=== PATIENT | male | born 1955 | race Caucasian/White ===

== ENCOUNTER 2018-03-13 22:17 | Observation (INO) ==
[2018-03-13] MEDS ORDERED: INSULIN REGULAR 100 UNIT/ML IV STA (22:57)
[2018-03-13] MEDS ORDERED: ALBUTEROL/IPRATROPIUM 3 ML NEB RESP TX STA (22:57)
[2018-03-13] MEDS ORDERED: SODIUM CHLORIDE 0.9% 500 ML IV STA (22:57)
[2018-03-14 00:01] LABS: Alanine Aminotransferase 218 U/L (16-61); Albumin 3.2 G/DL (3.4-5.0); Alkaline Phosphatase 139 U/L (45-117); Amylase 274 U/L (25-115); Aspartate Amino Transferase 195 U/L (0-37); Bilirubin,Total < 0.39 MG/DL (0.2-1.0); Blood Urea Nitrogen 19 MG/DL (7-18); Calcium 8.1 MG/DL (8.5-10.1); Glucose 362 MG/DL (74-106); Osmolality,Calculated 278.7 MOS/KG (273-304); Potassium 4.7 MMOL/L (3.5-5.1); Sodium 131 MMOL/L (136-145); Total Protein 7.9 G/DL (6.4-8.3); Troponin I < 0.015 NG/ML (0.00-0.045)
[2018-03-14] MEDS ORDERED: INSULIN REGULAR 100 UNIT/ML SUBCUT STA (00:23)
[2018-03-14 00:43] LABS: Apearance,Urine CLEAR (Clear); Bilirubin,Urine Negative (Negative); Blood, Urine Negative (Negative); Glucose,Urine (UA) >=500 mg/dL (Negative); Hyaline Casts,Urine 3 /LPF (0-3); Ketones,Urine Negative (Negative); Nitrite,Urine Negative (Negative); Protein,Urine Negative; RBC,Urine <1 /HPF (0-4); Squamous Epithelial Cell,Urine Occasional /HPF (0-10); Urine Color Yellow (Yellow); Urine Specific Gravity 1.023 (1.001-1.035); Urine Urobilinogen < 2.0 EU/DL (0.2-1.0); WBC,Urine <1 /HPF (0-6)
[2018-03-14 00:47] LABS: Barbiturates Screen,Urine Positive (Negative); Benzodiazepines Screen,Urine Positive (Negative); Cannabinoid Screen,Urine Positive (Negative); Opiate Screen,Urine Negative (Negative); Phencyclidine Screen,Urine Negative (Negative)
[2018-03-14 00:47] LABS: Basophils # 0.1 10*3/uL (0.0-0.2); Basophils % 0.7 % (0.0-0.8); Eosinophils # 0.2 10*3/uL (0.0-0.87); Eosinophils % 2.8 % (0.00-10.9); Hematocrit 37.5 VOL% (42.0-52.0); Hemoglobin 13.2 GM/DL (14.0-18.0); Immature Granulocytes % 0.6 %; Immature Granulocytes Absolute 0.04 #; Lymphocytes # 2.2 10*3/uL (1.4-4.0); Lymphocytes % 31.3 % (21.2-54.2); Mean Corpuscular HGB Conc 35.2 GM/DL (32-36); Mean Corpuscular Hemoglobin 32 PG (27-34); Mean Corpuscular Volume 90.6 FL (87-102); Mean Platelet Volume 9.9 FL (9.6-12.0); Monocytes # 0.7 10*3/uL (0.11-0.8); Monocytes % 9.6 % (1.7-12.7); Neutrophils # 3.9 10*3/uL (1.4-7.4); Platelet Count 121 T/CUMM (130-400); Red Blood Count 4.14 MC/CUMM (3.8-5.5); Red Cell Distribution Width 12.1 % (9.3-17.3); White Blood Count 7.1 T/CUMM (4-12)
[2018-03-14] MEDS ORDERED: DEXTROSE 50% 25 GM/50 ML VIAL IV PRN ×2 (01:00)
[2018-03-14] MEDS ORDERED: ONDANSETRON 4 MG/2 ML VIAL IV PRN (01:00)
[2018-03-14] MEDS ORDERED: GLUCAGON 1 MG VIAL IM PRN ×2 (01:00)
[2018-03-14] MEDS ORDERED: METHOCARBAMOL 750 MG TABLET PO PRN (01:05)
[2018-03-14] MEDS ORDERED: DICYCLOMINE 10 MG CAPSULE PO PRN (01:07)
[2018-03-14] MEDS ORDERED: hydrOXYzine HCL 25 MG TABLET PO PRN (01:08)
[2018-03-14 01:32] LABS: Alanine Aminotransferase 209 U/L (16-61); Alkaline Phosphatase 122 U/L (45-117); Aspartate Amino Transferase 175 U/L (0-37); Bilirubin,Total < 0.39 MG/DL (0.2-1.0); Blood Urea Nitrogen 19 MG/DL (7-18); Calcium 7.9 MG/DL (8.5-10.1); Glucose 345 MG/DL (74-106); Osmolality,Calculated 281.4 MOS/KG (273-304); Potassium 4.4 MMOL/L (3.5-5.1); Sodium 133 MMOL/L (136-145); Total Protein 7.6 G/DL (6.4-8.3)
[2018-03-14] MEDS: LORazepam 1 MG TABLET PO SCH ×5 (04:48→21:00)
[2018-03-14] MEDS: ENOXAPARIN 40 MG/0.4 ML SYRINGE SUBCUT SCH (10:09)
[2018-03-14] MEDS: INSULIN LISPRO 100 UNIT/ML SUBCUT SCH ×3 (10:09→18:07)
[2018-03-14] MEDS: INSULIN REGULAR 100 UNIT/ML SUBCUT SCH ×4 (10:10→21:01)
[2018-03-14] MEDS: MULTIVITAMIN (CENTRUM) TABLET PO SCH (10:10)
[2018-03-14] MEDS: THIAMINE 100 MG TABLET PO SCH (10:11)
[2018-03-14] MEDS: FOLIC ACID 1 MG TABLET PO SCH (10:11)
[2018-03-14] MEDS: PANTOPRAZOLE 40 MG TABLET PO SCH (10:11)
[2018-03-14 15:58] LABS: Hepatitis A Ab IgM Quant 0.08 Index; Hepatitis A Ab IgM Result Negative (Negative); Hepatitis B Core IgM Result Negative (Negative); Hepatitis B Surface Ag Quant 0.24 Index; Hepatitis B Surface Ag Result Negative (Negative); Hepatitis C Virus Ab Quant > 11.00 Index; Hepatitis C Virus Ab Result Positive (Negative)
[2018-03-14 20:02] LABS: Hepatitis B Core Ab Result Positive (Negative); Hepatitis B Surface Ab Result Negative
[2018-03-14] MEDS ORDERED: INSULIN GLARGINE 100 UNIT/ML SUBCUT SCH (21:00)
[2018-03-15] MEDS: LORazepam 1 MG TABLET PO SCH (00:50)
[2018-03-15] MEDS ORDERED: LORazepam 1 MG TABLET PO SCH ×2 (01:00→06:00)
[2018-03-15 07:12] LABS: Basophils # 0.1 10*3/uL (0.0-0.2); Basophils % 0.7 % (0.0-0.8); Eosinophils # 0.3 10*3/uL (0.0-0.87); Eosinophils % 3.4 % (0.00-10.9); Hematocrit 41.8 VOL% (42.0-52.0); Hemoglobin 14.3 GM/DL (14.0-18.0); Immature Granulocytes % 0.5 %; Immature Granulocytes Absolute 0.05 #; Lymphocytes # 3.1 10*3/uL (1.4-4.0); Lymphocytes % 33.2 % (21.2-54.2); Mean Corpuscular HGB Conc 34.2 GM/DL (32-36); Mean Corpuscular Hemoglobin 31 PG (27-34); Mean Corpuscular Volume 90.9 FL (87-102); Monocytes # 0.8 10*3/uL (0.11-0.8); Monocytes % 8.6 % (1.7-12.7); Neutrophils % 53.6 % (38.7-73.9); Platelet Count 141 T/CUMM (130-400); Red Cell Distribution Width 12.5 % (9.3-17.3); White Blood Count 9.2 T/CUMM (4-12)
[2018-03-15 07:27] LABS: PT Patient Result 10.7 SECS
[2018-03-15] MEDS: INSULIN REGULAR 100 UNIT/ML SUBCUT SCH ×2 (07:45→11:49)
[2018-03-15 07:58] LABS: Alanine Aminotransferase 184 U/L (16-61); Albumin 3.3 G/DL (3.4-5.0); Alkaline Phosphatase 138 U/L (45-117); Aspartate Amino Transferase 130 U/L (0-37); Bilirubin,Total < 0.39 MG/DL (0.2-1.0); Blood Urea Nitrogen 15 MG/DL (7-18); Calcium 8.4 MG/DL (8.5-10.1); Glucose 242 MG/DL (74-106); Osmolality,Calculated 272.5 MOS/KG (273-304); Potassium 4.7 MMOL/L (3.5-5.1); Sodium 132 MMOL/L (136-145); Total Protein 8.3 G/DL (6.4-8.3)
[2018-03-15] MEDS: INSULIN LISPRO 100 UNIT/ML SUBCUT SCH ×2 (08:47→11:49)
[2018-03-15] MEDS: PANTOPRAZOLE 40 MG TABLET PO SCH (10:00)
[2018-03-15] MEDS: ENOXAPARIN 40 MG/0.4 ML SYRINGE SUBCUT SCH (10:00)
[2018-03-15] MEDS: THIAMINE 100 MG TABLET PO SCH (10:00)
[2018-03-15] MEDS: MULTIVITAMIN (CENTRUM) TABLET PO SCH (10:00)
[2018-03-15] MEDS: FOLIC ACID 1 MG TABLET PO SCH (10:00)
[2018-03-15 11:34] VITALS: BP 133/85
[2018-03-15] MEDS ORDERED: chlordiazePOXIDE 10 MG CAPSULE PO SCH (21:00)
[2018-03-16] MEDS ORDERED: LORazepam 1 MG TABLET PO SCH (09:00)
== END 2018-03-15 13:55 ==
LOC: N.ED 22:17 → N.EDINP 22:17 → SUATTDRO 03-14 01:00 → N.3E 03-14 01:54
PROVIDERS: ADMIT Internal Medicine; ATTEND Internal Medicine